=== PATIENT | female | born 1995 | race Two or more races ===

== ENCOUNTER 2025-09-23 17:16 | Emergency (ER) | payer OTHER ==
[~2025-09-23] VITALS: Ht 165.1 cm; Wt 77.1 kg
[2025-09-23 17:27] VITALS: BP 124/84; O2SAT 100
== END 2025-09-23 19:27 | disposition home or self-care (01) ==
LOC: ER 17:17
DX: A60.09 Herpesviral infection of other urogenital tract (principal); Z87.09 Personal history of other diseases of the respiratory system